=== PATIENT | male | born 1990 | race Caucasian/White ===

== ENCOUNTER 2019-04-12 23:23 | Emergency (ER) | payer OTHER ==
[2019-04-12 23:40] VITALS: BP 127/73; PULSE 68; TEMP 97.9; BMI 28.3
--- NOTE | 2019-04-13 00:07 | PDOC ---
History of Present Illness - General Chief Complaint: Pain Stated Complaint: ABDOMINAL PAIN Time Seen by Provider: 04/12/19 23:41 - History of Present Illness Initial Comments: 04/13/19 00:07 28 y/o with no significant PMH presents to the ED with 2 days of GI complaints. Pt c/o nausea, 3 episodes of food containing vomitus, abdominal discomfort and incomplete bowel emptying after BM. He denied any associated Fever, cough, diarrhea or constipation, SOB, Chest pain, palpitations or change in urination. Pt also c/o diaphoresis, and elevated BP on two separate occasions since the onset of his symptoms (180/80 mmHg and 160/70 mmHg). His in law "gave him aspirin which helped with his blood pressure". Pt admits that he presented to the ED out of fear that he might have cancer as his uncle had sweats, N/V when he was diagnosed recently. Pt also admits to feeling anxious at time but often self resolving. Also admits to multiple recent life stressors. smokes marijuana daily. No change in diet or sick contact. PMH and PSH: none Social : marijuana use Family Hx: of mother who had hepatitis and uncle with cancer ROS: Constitutional: no fever,no chills HEENT: no throat pain, no dysphagia Cardiovascular: no chest pain, no palpitations Respiratory: no cough, no shortness of breath Gastrointestinal: Nausea and vomiting Genitourinary: no dysuria no urgency Musculoskeletal: no myalgia, no arthralgia Skin: no bruising Neurologic: no headache, no weakness Psych: no agitation, no anxiety PE: VSS GEN: NAD HEENT: PERRLA, moist membrane, clear conjunctiva NECK: no JVD CHEST: vesicular breath sounds b/l HEART: RRR no murmur, rubs or gallop ABDOMEN: + BS, soft and flat, NTND Extremities: 2+ pulses, no edema SKIN: no bruises MSK: no arthralgia, no joint tenderness PSYCH: anxious appearing Neuro: AAOx3, motor strength 5/5, sensation intact throughout Assessment: food poisoning vs constipation 04/13/19 00:21 plan: cbc, cmp, ekg, CXR 04/13/19 00:38 CBC WBC 6.7 K/mm3 (4.0-10.0) 04/13/19 00:18 RBC 4.62 M/mm3 (4.00-5.60) 04/13/19 00:18 Hgb 14.7 GM/dL (11.7-16.9) 04/13/19 00:18 Hct 42.0 % (35.4-49) 04/13/19 00:18 MCV 90.7 fl (80-96) 04/13/19 00:18 MCH 31.7 pg (25.7-33.7) 04/13/19 00:18 MCHC 34.9 g/dl (32.0-35.9) 04/13/19 00:18 RDW 13.0 % (11.9-15.9) 04/13/19 00:18 Plt Count 212 K/MM3 (134-434) 04/13/19 00:18 MPV 8.4 fl (7.5-11.1) 04/13/19 00:18 Absolute Neuts (auto) 4.3 K/mm3 (1.5-8.0) 04/13/19 00:18 Neutrophils % 64.2 % (42.8-82.8) 04/13/19 00:18 Lymphocytes % 24.3 % (8-40) 04/13/19 00:18 Monocytes % 10.3 % (3.8-10.2) H 04/13/19 00:18 Eosinophils % 0.9 % (0-4.5) 04/13/19 00:18 Basophils % 0.3 % (0-2.0) 04/13/19 00:18 Nucleated RBC % 0 % (0-0) 04/13/19 00:18 unremarkable CXR: no acute pathology will give 1L NS and pepcid for symptomatic relief 04/13/19 01:05 CMP Sodium 142 mmol/L (136-145) 04/13/19 00:18 Potassium 3.6 mmol/L (3.5-5.1) 04/13/19 00:18 Chloride 108 mmol/L (98-107) H 04/13/19 00:18 Carbon Dioxide 25 mmol/L (21-32) 04/13/19 00:18 Anion Gap 9 MMOL/L (8-16) 04/13/19 00:18 BUN 12.4 mg/dL (7-18) 04/13/19 00:18 Creatinine 0.8 mg/dL (0.55-1.3) 04/13/19 00:18 Est GFR (CKD-EPI)AfAm 141.89 04/13/19 00:18 Est GFR (CKD-EPI)NonAf 122.43 04/13/19 00:18 Random Glucose 98 mg/dL (74-106) 04/13/19 00:18 Calcium 8.9 mg/dL (8.5-10.1) 04/13/19 00:18 Total Bilirubin 1.4 mg/dL (0.2-1) H 04/13/19 00:18 AST 35 U/L (15-37) 04/13/19 00:18 ALT 31 U/L (13-61) 04/13/19 00:18 Alkaline Phosphatase 70 U/L (45-117) 04/13/19 00:18 Total Protein 7.2 g/dl (6.4-8.2) 04/13/19 00:18 Albumin 4.3 g/dl (3.4-5.0) 04/13/19 00:18 TSH 1.82 uIU/ml (0.358-3.74) 04/13/19 00:18 unremarkable except for mild elevation of Tbil, TSH 1.82 04/13/19 01:43 Pt stable for discharge 04/13/19 01:44 Past History - Past Medical History Allergies/Adverse Reactions: Allergies Allergy/AdvReac Type Severity Reaction Status Date / Time No Known Allergies Allergy Verified 04/12/19 23:35 COPD: No - Psycho Social/Smoking Cessation Hx Smoking History: Former smoker Have you smoked in the past 12 months: No Information on smoking cessation initiated: No Hx Alcohol Use: Yes Drug/Substance Use Hx: No *Physical Exam - Vital Signs Last Vital Signs Temp Pulse Resp BP Pulse Ox 97.9 F 68 18 127/73 100 04/12/19 23:32 04/12/19 23:32 04/12/19 23:32 04/12/19 23:32 04/12/19 23:32 ED Treatment Course - LABORATORY CBC & Chemistry Diagram: 04/13/19 00:18 04/13/19 00:18 - RADIOLOGY Radiology Studies Ordered: Category Date Time Status CHEST PA & LAT [RAD] Stat Radiology 04/13/19 00:03 Ordered Discharge - Discharge Information Problems reviewed: Yes Clinical Impression/Diagnosis: Nausea & vomiting Qualifiers: Vomiting type: unspecified Vomiting Intractability: unspecified Qualified Code( s): R11.2 - Nausea with vomiting, unspecified Condition: Improved Disposition: HOME - Admission No - Follow up/Referral Referrals: Sundeep Membreno MD [Staff Physician] - Call tomorrow - Patient Discharge Instructions Patient Printed Discharge Instructions: Substance Use Disorder, Nausea and Vomiting-Adult Additional Instructions: You came into the ED for nausea and vomiting and episodes of elevated Blood pressure. We tested your blood, imaged your chest and all results were negative. We remeasured your blood pressure and it was normal. We gave you fluids and some medication for the nausea and vomiting. You are now stable for discharge. Please follow up with your primary care doctor within one week. If you do not have one, please call the [facility] at [phone] to schedule an appointment with Dr Membreno within one week. If you begin to experience worsening nausea, vomiting, diarrhea/constipation, bleeding, fevers/chills, chest pain please return to the Emergency room immediately. - Post Discharge Activity
[2019-04-13 00:54] LABS: BASO % 0.3 % (0-2.0); EOS % 0.9 % (0-4.5); HEMOGLOBIN 14.7 GM/dL (11.7-16.9); LYMPH % 24.3 % (8-40); MCH 31.7 pg (25.7-33.7); MCHC 34.9 g/dl (32.0-35.9); MEAN CELL VOLUME 90.7 fl (80-96); MEAN PLT VOLUME 8.4 fl (7.5-11.1); MONO % 10.3 % (3.8-10.2); NEUT % 64.2 % (42.8-82.8); PLATELET COUNT 212 K/MM3 (134-434); RBC 4.62 M/mm3 (4.00-5.60); WHITE BLOOD COUNT 6.7 K/mm3 (4.0-10.0)
[2019-04-13] MEDS ORDERED: FAMOTIDINE 20 MG/50 ML IVPB 20 MG/50 ML MG IVPB ONE ×2 (01:03→01:35)
[2019-04-13] MEDS ORDERED: SODIUM CHLORIDE 1,000 ML IV STA (01:03)
[2019-04-13 01:41] LABS: ALBUMIN 4.3 g/dl (3.4-5.0); BILIRUBIN,TOTAL 1.4 mg/dL (0.2-1); BLOOD UREA NITROGEN 12.4 mg/dL (7-18); CALCIUM 8.9 mg/dL (8.5-10.1); CREATININE 0.8 mg/dL (0.55-1.3); POTASSIUM 3.6 mmol/L (3.5-5.1); TOT PROT 7.2 g/dl (6.4-8.2)
--- NOTE | 2019-04-13 01:54 | PDOC ---
Documentation entered by Steff Ruiz SCRIBE, acting as scribe for Coreen Castellano DO. Coreen Castellano DO: This documentation has been prepared by the Joseph sky Nirvannie, SCRIBE, under my direction and personally reviewed by me in its entirety. I confirm that the documentation accurately reflects all work, treatment, procedures, and medical decision making performed by me. Attending Attestation - Resident Resident Name: BenjiAlecJohanna - ED Attending Attestation I have performed the following: I have examined & evaluated the patient, The case was reviewed & discussed with the resident, I agree w/resident's findings & plan, Exceptions are as noted - HPI HPI: 04/13/19 00:50 The patient is a 28 year old male, with no significant past medical history, who presents to the emergency department s/p episode of diaphoresis and elevated blood pressure. As per patient, he has been experiencing 2 days of nausea with 3 episodes of NBNB emesis and when attempting to defecate he voids minimally then he experiences diaphoresis. Patient notes when the initial episode occurred he tested his blood pressure and was found to have a reading of 180s systolic thus he took Aspirin. Patient notes a repeat episode today thus he tested his blood pressure and observed a reading of 160s systolic. He notes to have repeated his blood pressure and observed a reading of 140s systolic without intervention. Patient notes he was worried he had cancer (his uncle diagnosed with cancer after episodes of diaphoresis), prompting his arrival to the ED. Patient has not followed up with a PCP in an extended period of time. He denies any recent fevers, chills, headache or dizziness. He denies any recent chest pain or shortness of breath. He denies any recent dysuria, frequency, urgency or hematuria. Allergies: NKDA 04/13/19 01:53 - Physicial Exam PE: 04/13/19 01:54 GENERAL: Awake, in no acute distress HEAD: No signs of trauma EYES: ENT:clear without exudates. Moist mucosa NECK: Normal ROM, LUNGS:. Normal work of breathing. HEART: Regular rate and rhythm, ABDOMEN: Soft, nondistended CHEST WALL: BACK: No midline tenderness. EXTREMITIES:. No erythema, or tenderness NEUROLOGICAL: Alert, SKIN: Warm, Dry - Medical Decision Making 04/13/19 01:54 28-year-old male with episodes of nausea, vomiting x2 and feelings of a nervous stomach Patient admits to increased stressors at home over the last few weeks He is currently feeling better EKG and labs unremarkable IV fluid normal saline 1 L bolus and 20 mg of Pepcid given in the emergency department Will DC after p.o. challenge with recommended primary care follow-up
--- NOTE | 2019-04-13 07:47 | PDOC ---
*Physical Exam - Vital Signs Last Vital Signs Temp Pulse Resp BP Pulse Ox 97.9 F 68 18 127/73 100 04/12/19 23:32 04/12/19 23:32 04/12/19 23:32 04/12/19 23:32 04/12/19 23:32 - Physical Exam 04/13/19 07:[address] Blair of radiology about a questionable soft tissue density on the patient's chest x-ray obtained earlier. Attempted to contact the patient at the phone number provided. Voicemail left requesting a call back for follow-up. We will follow-up with additional phone calls. ED Treatment Course - LABORATORY CBC & Chemistry Diagram: 04/13/19 00:18 04/13/19 00:18 - ADDITIONAL ORDERS Additional order review: Laboratory Results 04/13/19 00:18 Sodium 142 Potassium 3.6 Chloride 108 H Carbon Dioxide 25 Anion Gap 9 BUN 12.4 Creatinine 0.8 Est GFR (CKD-EPI)AfAm 141.89 Est GFR (CKD-EPI)NonAf 122.43 Random Glucose 98 Calcium 8.9 Total Bilirubin 1.4 H AST 35 ALT 31 Alkaline Phosphatase 70 Total Protein 7.2 Albumin 4.3 TSH 1.82 04/13/19 00:18 RBC 4.62 MCV 90.7 MCHC 34.9 RDW 13.0 MPV 8.4 Neutrophils % 64.2 Lymphocytes % 24.3 Monocytes % 10.3 H Eosinophils % 0.9 Basophils % 0.3 - Medications Given in the ED: ED Medications Discontinued Medications Generic Name Dose Route Start Last Admin Trade Name Freq PRN Reason Stop Dose Admin Famotidine/Sodium Chloride 20 mg in 50 mls @ 100 mls/hr 04/13/19 01:03 01:40 Pepcid 20 Mg Premixed Ivpb - IVPB 04/13/19 01:32 100 mls/hr ONCE ONE Administration Sodium Chloride 1,000 mls @ 1,000 mls/hr 04/13/19 01:03 04/13/19 01:40 Normal Saline - IV 04/13/19 02:02 1,000 mls/hr ASDIR STA Administration Discharge - Discharge Information Problems reviewed: Yes Clinical Impression/Diagnosis: Nausea & vomiting Qualifiers: Vomiting type: unspecified Vomiting Intractability: unspecified Qualified Code( s): R11.2 - Nausea with vomiting, unspecified Condition: Improved Disposition: HOME - Follow up/Referral Referrals: Sundeep Membreno MD [Staff Physician] - Call tomorrow - Patient Discharge Instructions Patient Printed Discharge Instructions: Substance Use Disorder, Nausea and Vomiting-Adult Additional Instructions: You came into the ED for nausea and vomiting and episodes of elevated Blood pressure. We tested your blood, imaged your chest and all results were negative. We remeasured your blood pressure and it was normal. We gave you fluids and some medication for the nausea and vomiting. You are now stable for discharge. Please follow up with your primary care doctor within one week. If you do not have one, please call the [facility] at [phone] to schedule an appointment with Dr Membreno within one week. If you begin to experience worsening nausea, vomiting, diarrhea/constipation, bleeding, fevers/chills, chest pain please return to the Emergency room immediately. - Post Discharge Activity
--- NOTE | 2019-04-13 16:38 | EKG ---
Test Reason : Blood Pressure : / mmHG Vent. Rate : 062 BPM Atrial Rate : 062 BPM P-R Int : 182 ms QRS Dur : 094 ms QT Int : 408 ms P-R-T Axes : 022 082 017 degrees QTc Int : 414 ms NORMAL SINUS RHYTHM NORMAL ECG Confirmed by MD OSORIO GREGORY ([id number]) on 04/13/2019 4:37:52 PM Referred By: Confirmed By:FRANK OSORIO MD
== END 2019-04-13 02:39 | disposition home or self-care (01) ==
LOC: JER 23:23
PROC: 3E033GC Introduction of Other Therapeutic Substance into Peripheral Vein, Percutaneous Approach (ICD-10-PCS; principal; 2019-04-12)
DX: R11.2 Nausea with vomiting, unspecified (principal)
CPT/HCPCS: 36415; 71046-TC-FY; 80053; 84443; 85025; 93005; 93010; 99285-25; J7030

== ENCOUNTER 2020-04-30 08:34 | Emergency (ER) | payer SELFPAY ==
[2020-04-30] MEDS ORDERED: KETOROLAC TROMETHAMINE 60 MG/2 ML VIAL IM ONE (09:37)
[2020-04-30 09:38] VITALS: BP 121/68; PULSE 55; TEMP 97.7; BMI 26.6
[2020-04-30] MEDS ORDERED: KETOROLAC TROMETHAMINE 60 MG/2 ML VIAL ONE (10:13)
== END 2020-04-30 10:25 | disposition home or self-care (01) ==
LOC: JERFT 08:34
PROC: 3E0233Z Introduction of Anti-inflammatory into Muscle, Percutaneous Approach (ICD-10-PCS; principal; 2020-04-30)
DX: M54.6 Pain in thoracic spine (principal)
CPT/HCPCS: 71101-TC-RT-FY; 99284-25

== ENCOUNTER 2024-07-18 16:16 | Emergency (ER) | payer SELFPAY ==
[2024-07-18 16:27] VITALS: RESP 18; BMI 29.8
[2024-07-18] MEDS: SODIUM CHLORIDE 1,000 ML IV STA (17:41)
[2024-07-18] MEDS ORDERED: ACETAMINOPHEN INJECTION 100 ML ONE (17:44)
[2024-07-18] MEDS ORDERED: ONDANSETRON 4 MG/2 ML VIAL ONE (17:44)
[2024-07-18 17:46] LABS: ABSOLUTE IMMATURE GRANULOCYTES 0.06 x10^3/uL (0.0-0.031); BASOPHILS # 0.02 x10^3/uL (0.01-0.08); EOSINOPHIL % 0.1 % (0.8-7.0); EOSINOPHILS # 0.01 x10^3/uL (0.04-0.54); HEMATOCRIT 45.2 % (40.1-51.0); HEMOGLOBIN 15.6 g/dL (13.7-17.5); MCHC 34.5 g/dl (32.3-36.5); MEAN CELL VOLUME 87.9 fl (79.0-92.2); MEAN PLT VOLUME 9.6 fl (9.4-12.4); MONOCYTE # 0.86 x10^3/uL (0.30-0.82); MONOCYTE % 7.2 % (5.3-12.2); PLATELET COUNT 237 x10^3/uL (163-337); RDW 12.2 % (12.0-15.6)
[2024-07-18] MEDS: ONDANSETRON 4 MG/2 ML VIAL IVPUSH ONE (17:48)
[2024-07-18] MEDS: ACETAMINOPHEN 1000 MG/100 ML BAG IVPB ONE (17:48)
[2024-07-18 17:57] LABS: INR 1.37 (0.83-1.09); PROTHROMBIN TIME (PATIENT) 14.9 SEC (9.7-13.0)
[2024-07-18 17:59] LABS: ACTIVATED PTT 35.4 SECONDS (25.2-36.5)
[2024-07-18 18:11] LABS: PH,URINE >= 9.0 (5.0-8.0); URINE APPEARANCE CLEAR; URINE BILIRUBIN NEGATIVE (NEGATIVE); URINE COLOR YELLOW; URINE GLUCOSE (UA) NEGATIVE (NEGATIVE); URINE KETONE NEGATIVE (NEGATIVE); URINE LEUK ESTERASE NEGATIVE (NEGATIVE); URINE NITRITE NEGATIVE (NEGATIVE); URINE PROTEIN 30 (NEGATIVE)
[2024-07-18 18:19] LABS: POTASSIUM 3.5 mmol/L (3.5-5.1)
[2024-07-18 18:21] LABS: CALCIUM 9.4 mg/dL (8.5-10.1)
[2024-07-18 18:22] LABS: ALBUMIN 4.2 g/dl (3.4-5.0); BLOOD UREA NITROGEN 11.1 mg/dL (7-18)
[2024-07-18 18:27] LABS: TOT PROT 7.6 g/dl (6.4-8.2)
[2024-07-18 18:55] LABS: EPI CELLS 2 /uL (0-25.1); HYALINE CASTS 0 /uL (0-3.1); URINE BACTERIA 10 /uL (0-1359); URINE RBC 12 /uL (0-23.9); URINE WBC 3 /uL (0-25.8)
[2024-07-18 19:06] LABS: HCV DIAGNOSTIC IN-HOUSE W/RFLX NON-REACTIVE (NONREACTIVE); HIV INTERPRETATION NEGATIVE (NEGATIVE)
[2024-07-18 19:37] VITALS: BP 115/68; PULSE 84; TEMP 98.7
[2024-07-18] MEDS ORDERED: AMOX TR/POT CLAV 875MG/125MG TABLETS (FP) ONE (21:57)
[2024-07-18] MEDS: AMOX TR/POT CLAV 875MG/125MG TABLETS (FP) PO ONE (21:57)
== END 2024-07-18 22:01 | disposition home or self-care (01) ==
LOC: JER 16:16
PROC: 3E033NZ Introduction of Analgesics, Hypnotics, Sedatives into Peripheral Vein, Percutaneous Approach (ICD-10-PCS; principal; 2024-07-18)
PROC: 3E033GC Introduction of Other Therapeutic Substance into Peripheral Vein, Percutaneous Approach (ICD-10-PCS; 2024-07-18)
PROC: 3E0337Z Introduction of Electrolytic and Water Balance Substance into Peripheral Vein, Percutaneous Approach (ICD-10-PCS; 2024-07-18)
DX: K57.32 Diverticulitis of large intestine without perforation or abscess without bleeding (principal); R11.2 Nausea with vomiting, unspecified; R10.31 Right lower quadrant pain; R10.32 Left lower quadrant pain
CPT/HCPCS: 0241U-QW; 36415; 74177-TC; 80053; 81003; 85025; 85610; 85730; 86803; 87086; 87389; 99285-25; Q9967